=== PATIENT | female | born 1960 | race Caucasian/White ===

== ENCOUNTER 2016-07-04 15:38 | Emergency (ER) | payer OTHER ==
[~2016-07-04] VITALS: Ht 157.5 cm; Wt 50.8 kg
--- NOTE | 2016-07-04 17:01 | ED ANIMAL BITE/WOUND CHECK ---
History of Present Illness General Chief Complaint: Animal/Insect Bite Stated Complaint: DOG BITE TO RIGHT ARM Source: patient, family Exam Limitations: no limitations Vital Signs & Intake/Output Vital Signs & Intake/Output Vital Signs Date Time Temp Pulse Resp B/P B/P Pulse O2 O2 Flow FiO2 Mean Ox Delivery Rate 07/04 1905 84 16 126/78 07/04 1618 99.0 105 20 155/96 99 Room Air Allergies Coded Allergies: Penicillins (Intermediate, ?HIVES 07/04/16) azithromycin (From ZITHROMAX Z-MARCOS) (Intermediate, FACIAL ITCHING AND SWELLING 07/04/16) erythromycin base (Intermediate, GI UPSET 07/04/16) morphine (Intermediate, REDNESS/SWELLING 07/04/16) tetracycline (Intermediate, GI UPSET 07/04/16) adhesive (Mild, RED, ITCHY 07/04/16) Reconcile Medications Esomeprazole (Nexium) 40 MG CAPSULE.DR 1 CAP PO DAILY GI (Reported) Metronidazole 500 MG TABLET 1 TAB PO TID wound prophylaxisq Multivitamin (Multi-Day Vitamins) 1 EACH TABLET 1 TAB PO DAILY SUPPLEMENT ( Reported) Sulfamethoxazole/Trimethoprim (Bactrim Ds Tablet) 800 MG-160 MG TABLET 1 TAB PO BID wound prophylaxis Triage Note: TRIAGE: PT TO ER C/C DOG BITE TO RFA APPROX 14:30. DOG IS UNKNOWN TO PATIENT. STATES SHE WAS AT THE [place] AND SHE APPROACHED THE DOG. HE GRABBED HER ARM AND SHOOK. PT HAD DIFFICULTY EXTRICATING HERSELF FROM DOG. HAS PAPER AT TRIAGE SHOWING THAT THE DOG IS UP TO DATE ON RABIES. UNSURE OF LAST TETANUS. PT HAS NOT LOOKED AT WOUND YET STATES "IT WILL MAKE ME SICK TO LOOK AT IT". HAS LONG SLEEVE MANGANESE WHEELER OVER ARM, JACKET HAS SMALL AMOUNT OF BLOOD ON IT. NO ACTIVE BLEEDING NOTED. PT ICED THE [employer]A [employer]. Triage Nurses Notes Reviewed? yes HPI: Patient is a 55-year-old female presents complaining of dog bite to her right forearm. Injury occurred approximately 2 hours ago. Patient reports initially pain was severe with numbness in right hand. Numbness has been improving. Pain is a burning sensation which is moderate at rest, severe with palpation and range of motion. Patient is right hand dominant. Dog is up-to-date with its rabies vaccinations. Patient is unsure of her most recent tetanus immunization. Patient denies decreased range of motion of her right hand. Past History Travel History Traveled to [place] past 21 day No Medical History Any Pertinent Medical History? see below for history Neurological: NONE EENT: NONE Cardiovascular: NONE Respiratory: NONE Gastrointestinal: ACID REFLUX Hepatic: NONE Renal: NONE Musculoskeletal: NONE Psychiatric: NONE Endocrine: NONE Blood Disorders: NONE Cancer(s): NONE LINE PALLETIZER/Reproductive: NONE Surgical History Surgical History: non-contributory Psychosocial History What is your primary language Belarusian Tobacco Use: Never used ETOH Use: occasional use Illicit Drug Use: denies illicit drug use Family History Hx Contributory? No Review of Systems Review of Systems Constitutional: Reports: no symptoms. Cardiovascular: Denies: chest pain. GI: Denies: abdominal pain. Musculoskeletal: Reports: see HPI. Skin: Reports: see HPI. Neurological/Psychological: Reports: paresthesia (resolved). Hematologic/Endocrine: Reports: bleeding (from wounds, resolved). Immunologic/Allergic: Reports: no symptoms. Physical Exam Physical Exam General Appearance: well developed/nourished, alert, awake, anxious Head: atraumatic, normal appearance Eyes: Bilateral: normal appearance. Ears, Nose, Throat: hearing grossly normal Neck: normal inspection, full range of motion Respiratory: no respiratory distress Peripheral Pulses: 2+ radial (R) Back: normal range of motion Extremities: multiple puncture wounds to right mid posterior forearm, 1 1cm puncture laceration to right mid anterior forearm. Full range of motion of right wrist and right hand. No visible or palpable foreign body. Sensation to light touch normal in hand and all 5 fingers. Neurologic/Psych: no motor/sensory deficits, awake, alert, oriented x 3, normal gait, normal mood/affect Diagram Body: 1) 1 cm puncture wound laceration 2) 2cm x 0.5cm laceration 3) multiple less than 0.5cm puncture wounds Progress Differential Diagnosis: fracture, foreign body, tendon laceration, nerve laceration Plan of Care: Orders Procedure Date/time Status XRY-FOREARM, RIGHT 07/05 1715 Active Wound to the right posterior forearm keeping. Irrigated with 600 mL of sterile water, 2 sutures placed to loosely approximate edges given increased infection risk. This was discussed with the patient. Wound to the anterior forearm was left open and irrigated with 400 mL of sterile water.. (MIRYAM BRANTLEY,XI) Diagnostic Imaging: Viewed by Me: Radiology Read. Discussed w/RAD: Radiology Read. Radiology Impression: PATIENT: EDITH EATON PRESENT AGE: 55 PATIENT ACCOUNT NO: [id number] : 60 LOCATION: [facility] ORDERING PHYSICIAN: XI BRANTLEY SERVICE DATE: 07/04/16 EXAM TYPE: RAD - XRY-FOREARM, RIGHT EXAMINATION: XR FOREARM, RIGHT CLINICAL INFORMATION: Dog bite to right forearm. Question foreign body COMPARISON: None TECHNIQUE: AP and lateral views of the right forearm were obtained. FINDINGS: There are scattered lucencies throughout the distal aspect of the right forearm consistent with a history provided of dog bite. No definite radiopaque foreign bodies identified within the soft tissues. The underlying radius and ulna appear intact. Limited views of the right wrist are unremarkable. IMPRESSION: Evidence for soft tissue injury involving the distal aspect of the right forearm without radiographic evidence for foreign body. DICTATED BY: JASE AVILA MD DATE/TIME DICTATED:07/04 MOLDER MACHINE:JANNETTE DATE/TIME TRANSCRIBED:07/04/161803 CONFIDENTIAL, DO NOT COPY WITHOUT APPROPRIATE AUTHORIZATION. <Electronically signed in Other Vendor System> SIGNED BY: JASE AVILA MD 07/04/161808 Departure Departure Time of Disposition: 1831 Disposition: HOME OR SELF CARE Condition: Stable Clinical Impression Primary Impression: Dog bite of right forearm Qualifiers: Encounter type: initial encounter Qualified Codes: S51.851A - Open bite of right forearm, initial encounter; W54.0XXA - Bitten by dog, initial encounter Referrals: UNKNOWN (PCP/Family) Additional Instructions: Keep wound clean. Bacitracin to the wounds 1-2 times a day. The wound with stitches in place stop using bacitracin after 3 days. Return to the emergency department in 12 days for suture removal. Return immediately if pus from the wound, redness spreading from the wound, fevers, increasing pain, or worsening of symptoms. Departure Forms: Customer Survey General Discharge Information Prescriptions: Current Visit Scripts Sulfamethoxazole/Trimethoprim (Bactrim Ds Tablet) 1 TAB PO BID #14 TAB Metronidazole 1 TAB PO TID #21 TAB Procedures Laceration/Wound Repair Laceration/Wound Repair: Wound's Depth, Shape: irregular, subcutaneous Wound Explored: clean Irrigated w/ Saline (ccs): 600 Betadine Prep? Yes Anesthesia: lidocaine w/ epi Volume Anesthetic (ccs): 4 Wound Debrided: minimal Wound Repaired With: sutures Suture Size/Type: 4:0, nylon Number of Sutures: 2
[2016-07-04] MEDS ORDERED: MULTI-DAY VITA1 EACH PO (17:49)
[2016-07-04] MEDS ORDERED: NEXIUM40 M1 PO (17:49)
--- NOTE | 2016-07-04 18:09 | RADIOLOGY REPORT ---
EXAMINATION: XR FOREARM, RIGHT CLINICAL INFORMATION: Dog bite to right forearm. Question foreign body COMPARISON: None TECHNIQUE: AP and lateral views of the right forearm were obtained. FINDINGS: There are scattered lucencies throughout the distal aspect of the right forearm consistent with a history provided of dog bite. No definite radiopaque foreign bodies identified within the soft tissues. The underlying radius and ulna appear intact. Limited views of the right wrist are unremarkable. IMPRESSION: Evidence for soft tissue injury involving the distal aspect of the right forearm without radiographic evidence for foreign body.
[2016-07-04] MEDS ORDERED: BACTRIM DS TAB1 EACH PO (18:33)
[2016-07-04] MEDS ORDERED: METRONIDAZOLE500 M1 PO (18:33)
[2016-07-04 19:05] VITALS: BP 126/78
== END 2016-07-04 19:06 ==
LOC: ERH 15:38
DX: S51.851A Open bite of right forearm, initial encounter (principal); W54.0XXA Bitten by dog, initial encounter; Y93.9 Activity, unspecified; Y92.9 Unspecified place or not applicable
CPT/HCPCS: 73090-RT